=== PATIENT | female | born 1950 | race Caucasian/White ===

== ENCOUNTER → 2016-05-04 | Outpatient (CLI) | payer BC ==
[~2016-05-04] MED LIST: CHOL100010 PO; FLUO0.0566 TOP; GABA-112 PO; GABA-113 PO; HYDR-4079 PO; MGNO400 PO; MYR25 PO; SACC250C PO; SNG10 PO; SYN100 PO; TRAN10TA PO; TRL300 PO; ZYP10 PO; [UNRECOGNIZED DRUG - CODE] PO
[2016-05-04 13:03] LABS: HEMATOCRIT 45.8 % (37-47); MEAN CELL VOLUME 90.9 fL (80-100); MEAN CORPUSCULAR HGB CONC 34.1 g/dl (32-36); MEAN PLATELET VOLUME 9.1 fL (7.4-10.4); PLATELET COUNT 436 K/uL (130-400); RED BLOOD COUNT 5.04 M/uL (4.2-5.4); WHITE BLOOD COUNT 8.76 K/uL (4.8-10.8)
[2016-05-04 13:44] LABS: ALT/SGPT 16 U/L (12-78); BLOOD UREA NITROGEN 14 mg/dl (7-18); BUN/CREATININE RATIO 15.2 (10-20); CALCIUM 10.4 mg/dl (8.5-10.1); CARBON DIOXIDE 27 mmol/L (21-32); CHLORIDE 107 mmol/L (98-107); CHOLESTEROL 222 mg/dl (0-200); CREATININE 0.93 mg/dl (0.60-1.20); GLUCOSE 90 mg/dl (70-99); SODIUM 141 mmol/L (136-145); TRIGLYCERIDES 215 mg/dl (0-150); VERY LOW DENSITY LIPOPROT CALC 43 mg/dl
[2016-05-04 13:52] LABS: ALB/GLOB RATIO 0.8 (0.9-2); ALKALINE PHOSPHATASE 117 U/L (45-117); AST/SGOT 14 U/L (15-37); CHOLESTEROL/HDL RATIO 3.8; HDL CHOLESTEROL 58 mg/dl; LDL CHOLESTEROL CALCULATED 121 mg/dl; THYROID STIMULATING HORMONE 0.745 uIu/ml (0.300-4.500)
== END | disposition home or self-care (01) ==
LOC: C.LAB 11:54
PROVIDERS: ATTEND Psychiatry & Neurology Psychiatry
DX: Z00.00 Encounter for general adult medical examination without abnormal findings (principal); Z79.899 Other long term (current) drug therapy; E03.9 Hypothyroidism, unspecified; Z13.220 Encounter for screening for lipoid disorders

== ENCOUNTER → 2016-10-19 | Outpatient (CLI) | payer OTHER, BC | END | disposition home or self-care (01) | LOC: C.LAB1850 14:32 | PROVIDERS: ATTEND Internal Medicine Rheumatology | DX: M81.0 Age-related osteoporosis without current pathological fracture (principal); N25.81 Secondary hyperparathyroidism of renal origin ==

== ENCOUNTER 2017-01-07 21:22 | Emergency (ER) | payer OTHER, BC ==
[~2017-01-07] VITALS: Ht 167.6 cm; Wt 63.2 kg
[2017-01-07 21:31] VITALS: TEMP 36.8; Ht 167.6 cm; Wt 63.2 kg
[2017-01-07] MEDS ORDERED: CYAN500T PO (22:28)
[2017-01-07] MEDS ORDERED: CARB200T PO ×3 (22:29→22:39)
[2017-01-07] MEDS ORDERED: LAMO100T16 PO (22:39)
[2017-01-07] MEDS ORDERED: LEVO100T PO (22:39)
[2017-01-07] MEDS ORDERED: MONT1TAB3 PO (22:39)
[2017-01-07] MEDS ORDERED: GABA-113 PO (22:39)
[2017-01-07] MEDS ORDERED: MELO15TA4 PO (22:39)
[2017-01-07] MEDS ORDERED: PALI6TAB PO (22:39)
[2017-01-07] MEDS ORDERED: HYDR-4079 PO (22:39)
[2017-01-07] MEDS ORDERED: MIRA1TAB3 PO (22:39)
[2017-01-07 22:59] LABS: BASO % 0.2 %; BASO ABS # 0.03 K/uL (0-0.2); COMPLETE YES; EOS % 1.7 %; IG% 0.2 %; LYMPH ABS # 2.22 K/uL (1.2-3.4); MEAN CORPUSCULAR HEMOGLOBIN 31.1 pg (25-34); MEAN CORPUSCULAR HGB CONC 34.9 g/dl (32-36); MEAN PLATELET VOLUME 9.7 fL (7.4-10.4); MONO % 6.8 %; NEUT % 73.1 %; PLATELET COUNT 374 K/uL (130-400); RED BLOOD COUNT 5.28 M/uL (4.2-5.4); WHITE BLOOD COUNT 12.34 K/uL (4.8-10.8)
[2017-01-07 23:17] LABS: BUN/CREATININE RATIO 17.7 (10-20); CALCIUM 11.1 mg/dl (8.5-10.1); CREATININE 1.02 mg/dl (0.60-1.20); POTASSIUM 3.1 mmol/L (3.5-5.1)
[2017-01-07 23:20] LABS: ACETAMINOPHEN < 2 ug/ml (10-30)
[2017-01-08] MEDS ORDERED: POTASSIUM CHLORIDE 10 MEQ TABCR PO STA (00:09)
--- NOTE | 2017-01-08 01:04 | EMERGENCY ROOM VISIT NOTE ---
History Report prepared by Marie: Merary Varner Under the Supervision of: Dr. Vishnu Slater M.D. First contact with patient: 21:40 Chief Complaint: MENTAL HEALTH EVALUATION Stated Complaint: MENTAL HEALTH History of Present Illness The patient is a 66 year old female who presents to the Emergency Room for a mental health evaluation. The patient states that she is here for orthopedics and will only see Dr. Haney. She states "your voice is too loud and irritating. Shut up." The patient notes that she is "listening to a song." She states that "the three of them should play the piano." She reports that she is speaking with Sir Quinten Matthews, Deion Mann, and Wilber Shah. HPI limited secondary to altered mental status. Source of History: patient History Limited By: AMS Onset: this evening Position: other (global) Quality: other (global) Timing: other (episode) Review of Systems See HPI for pertinent positives & negatives. A total of 10 systems reviewed and were otherwise negative. Past Medical & Surgical Medical Problems: (1) Asthma, Unspecified (2) Bipolar disorder (3) Bleeding hemorrhoid (4) Chronic pain (5) Chronic Pain Syndrome (6) Delirium (7) Depressive Disorder Nec (8) Frequent falls (9) Hypothyroid (10) Hypothyroidism (11) Hypothyroidism Nos (12) Lumbago (13) Lumbosacral Neuritis Nos (14) Noncompliance (15) Opioid Dependence-Unspec (16) Osteoporosis Nos (17) Past Psych Meds (18) Stomach Ulcer Nos Surgical Problems: (1) Knee Joint Replacement Status Old medical records were reviewed. Nurse's notes were reviewed and I agree with. Family History Patient reports no known family medical history. Social History Smoking Status: Unknown if Ever Smoked Marital Status: single Occupation Status: disabled Current/Historical Medications Scheduled Carbamazepine (Tegretol), 200 MG PO QAM Carbamazepine (Tegretol), 400 MG PO HS Gabapentin (Neurontin), 300 MG PO QID Lamotrigine (Lamictal), 100 MG PO HS Levothyroxine Sodium (Synthroid), 100 MCG PO QAM Meloxicam (Meloxicam), 15 MG PO DAILY Mirabegron (Myrbetriq Er), 50 MG PO DAILY Montelukast Sodium (Singulair), 10 MG PO DAILY Paliperidone (Invega), 6 MG PO HS Scheduled PRN Hydrocodone/Acetaminophen 10MG/325MG ([place] 10MG/325MG), 1 TAB PO QID PRN for Pain Allergies Coded Allergies: Meperidine (Verified Allergy, Severe, 01/07/17) Codeine (Verified Allergy, Mild, 01/07/17) Nitrofurantoin (Verified Allergy, Mild, 01/07/17) Sulfa Antibiotics (Verified Allergy, Mild, `, 01/07/17) Clavulanic Acid (Verified Adverse Reaction, Intermediate, NAUSEA, 01/07/17 ) Iodine (Verified Adverse Reaction, Intermediate, BURNING ON CONTACT, 01/07) Penicillins (Verified Adverse Reaction, Intermediate, NAUSEA, 01/07/17) NSAIDs (Unverified Adverse Reaction, Unknown, NO NSAIDS PER [id number] DR HANEY ADM, 01/07/17) Physical Exam Vital Signs Date Time Temp Pulse Resp B/P (MAP) Pulse Ox O2 Delivery O2 Flow Rate FiO2 01/07/17 23:43 95 16 114/70 94 Room Air 01/07/17 21:31 36.8 106 22 133/101 92 Room Air Physical Exam General: Disheveled middle aged female who is uncooperative. Appears to be responding to external stimuli/voices. Intermittently agitated. HEENT: Normal cephalic atraumatic. Pupils are equal round and reactive to light. Extraocular movements are intact. Oropharynx is pink with moist mucous membranes. No swelling of the mouth lips or tongue. Neck: Supple with a midline trachea. No meningeal signs or stiffness, no JVD or bruits. No Stridor. Chest: Clear to auscultation bilaterally. No wheezes or rhonchi. No increased work of breathing. Heart: regular rate and rhythm. Abdomen: Soft nontender, nondistended without rebound guarding or rigidity. Extremities: No cyanosis clubbing or edema. No calf tenderness or assymetry Spine/Back. Non tender to palpation. No CVA tenderness Skin: Good turgor without rashes. Neurologic exam: Cranial nerves two through 12 are intact. Motor and sensation are intact and symmetrical throughout. Psych: Uncooperative. Delusional. Responding to voices. Medical Decision & Procedures Laboratory Results 01/07/17 22:17 Red Blood Count 5.28, Mean Corpuscular Volume 89.0, Mean Corpuscular Hemoglobin 31.1, Mean Corpuscular Hemoglobin Concent 34.9, Mean Platelet Volume 9.7, Neutrophils (%) (Auto) 73.1, Lymphocytes (%) (Auto) 18.0, Monocytes (%) (Auto) 6.8, Eosinophils (%) (Auto) 1.7, Basophils (%) (Auto) 0.2, Neutrophils # (Auto) 9.01, Lymphocytes # (Auto) 2.22, Monocytes # (Auto) 0.84, Eosinophils # (Auto) 0.21, Basophils # (Auto) 0.03 01/07/17 22:17 Test 01/07/17 22:17 White Blood Count 12.34 K/uL (4.8-10.8) Red Blood Count 5.28 M/uL (4.2-5.4) Hemoglobin 16.4 g/dL (12.0-16.0) Hematocrit 47.0 % (37-47) Mean Corpuscular Volume 89.0 fL (80-100) Mean Corpuscular Hemoglobin 31.1 pg (25-34) Mean Corpuscular Hemoglobin Concent 34.9 g/dl (32-36) Platelet Count 374 K/uL (130-400) Mean Platelet Volume 9.7 fL (7.4-10.4) Neutrophils (%) (Auto) 73.1 % Lymphocytes (%) (Auto) 18.0 % Monocytes (%) (Auto) 6.8 % Eosinophils (%) (Auto) 1.7 % Basophils (%) (Auto) 0.2 % Neutrophils # (Auto) 9.01 K/uL (1.4-6.5) Lymphocytes # (Auto) 2.22 K/uL (1.2-3.4) Monocytes # (Auto) 0.84 K/uL (0.11-0.59) Eosinophils # (Auto) 0.21 K/uL (0-0.5) Basophils # (Auto) 0.03 K/uL (0-0.2) RDW Standard Deviation 39.1 fL (36.4-46.3) RDW Coefficient of Variation 12.2 % (11.5-14.5) Immature Granulocyte % (Auto) 0.2 % Immature Granulocyte # (Auto) 0.03 K/uL (0.00-0.02) Anion Gap 8.0 mmol/L (3-11) Est Creatinine Clear Calc Drug Dose 51.4 ml/min Estimated GFR () 66.8 Estimated GFR (Non- 57.7 BUN/Creatinine Ratio 17.7 (10-20) Calcium Level 11.1 mg/dl (8.5-10.1) Total Bilirubin 0.5 mg/dl (0.2-1) Direct Bilirubin 0.1 mg/dl (0-0.2) Aspartate Amino Transf (AST/SGOT) 56 U/L (15-37) Alanine Aminotransferase (ALT/SGPT) 39 U/L (12-78) Alkaline Phosphatase 110 U/L (45-117) Total Protein 8.6 gm/dl (6.4-8.2) Albumin 3.8 gm/dl (3.4-5.0) Lipase 567 U/L (73-393) Salicylates Level < 1.7 mg/dl (2.8-20) Acetaminophen Level < 2 ug/ml (10-30) Ethyl Alcohol mg/dL < 3.0 mg/dl (0-3) Laboratory studies as stated above per my review. Medications Administered Medications (Trade) Dose Ordered Sig/Mark Route Start Time Stop Time Status Last Admin Dose Admin Potassium Chloride (Klor-Con M10) 40 meq NOW STAT PO 01/08/17 00:09 01/08/17 00:11 DC 01/08/17 01:26 20 MEQ Lorazepam (Ativan Tab) 1 mg NOW STAT SL 01/08/17 02:36 01/08/17 02:37 DC 01/08/17 02:55 1 MG ED Course 2142: Past medical records reviewed. The patient was evaluated in room A7, and a complete history and physical examination were performed. 0009: Ordered Potassium Chloride 40 meq PO. 0153: I reevaluated the patient. 3 [facility] is evaluating the patient and is petitioning a 302. Medical Decision Differential diagnoses include bipolar, deann, toxicologic process, infection, psychosis. This patient comes in as described above. She has a long documented psychiatric history she comes in and she has psychosis. She is responding to external stimuli and talking to herself. She is intermittently agitated. She is not cooperative at times. It is difficult to get any reasonable history from her. I have reviewed her old history in the computer. Blood work was obtained. She's had no acute electrode or metabolic abnormalities with exception of potassium be mildly low at 3.1. This was repleted with by mouth potassium. Her lipase is minimally elevated at 500. She has nothing to suggest pancreatitis and typically interhospital this does tend to be elevated slightly. She has nothing to suggest intentional overdose. I do think she will need to be admitted to psychiatric facility and I psychiatric case management team is currently working on placement. The patient has inability to care for herself and is responding to internal stimuli. She was given Ativan a milligram by mouth here given her symptoms. I do think she meets 302 criteria to sign off the 302. They're working on placement. The patient was signed out to Dr. Santa at shift change. Medication Reconcilliation Current Medication List: was personally reviewed by me Blood Pressure Screening Patient's blood pressure: Normal blood pressure Blood pressure disposition: Did not require urgent referral Impression Primary Impression: Psychosis Scribe Attestation The scribe's documentation has been prepared under my direction and personally reviewed by me in its entirety. I confirm that the note above accurately reflects all work, treatment, procedures, and medical decision making performed by me. Departure Information Referrals Milagro Couch (PCP) Patient Instructions My [facility]
[2017-01-08] MEDS ORDERED: LORAZEPAM 1 MG TAB SL STA (02:36)
--- NOTE | 2017-01-08 06:00 | EMERGENCY ROOM VISIT NOTE ---
ED Visit Note First contact with patient: 04:58 This case was signed out to me at change of shift awaiting bed placement. The patient is an involuntary commitment. She is cooperative at this time. 0600: The patient has been accepted at [facility] in [place]. They are arranging transport through the [facility]. She is a 302
--- NOTE | 2017-01-08 08:18 | EMERGENCY ROOM VISIT NOTE ---
ED Visit Note I assumed care at the change of shift, Dr. Santa had been the doctor just prior to me. I did fill out the transport paperwork. The patient is being transferred as a 302. She has been cooperative during the time under my care.
[2017-01-08 09:10] VITALS: BP 107/90; PULSE 120; O2SAT 94
== END 2017-01-08 09:35 | disposition short-term general hospital (02) ==
LOC: EDBD 21:22 → C.EDA 21:23
DX: F29 Unspecified psychosis not due to a substance or known physiological condition (principal); J45.909 Unspecified asthma, uncomplicated; E03.9 Hypothyroidism, unspecified; F31.9 Bipolar disorder, unspecified; Z91.81 History of falling; Z96.659 Presence of unspecified artificial knee joint; Z79.899 Other long term (current) drug therapy

== ENCOUNTER → 2017-07-19 | Outpatient (CLI) | payer OTHER, BC ==
[~2017-07-19] MED LIST changes: +ACET-1256 PO; -CHOL100010 PO; +CHOL20007 PO; +ESCI1TAB10 PO; -FLUO0.0566 TOP; -GABA-112 PO; -HYDR-4079 PO; +LAMO200T PO; +LEVO100T PO; +MELA1TAB5 PO; +MELO-83 PO; -MGNO400 PO; +MIRA1TAB3 PO; +MISC1CAP58 PO; +MONT1TAB3 PO; +MULT-506 PO; -MYR25 PO; +PALI234I IM; +RISP4TAB8 PO; -SACC250C PO; -SNG10 PO; -SYN100 PO; -TRAN10TA PO; +TRAZ100T29 PO; -TRL300 PO; -ZYP10 PO; -[UNRECOGNIZED DRUG - CODE] PO
[2017-07-19 13:12] LABS: BLOOD UREA NITROGEN 23 mg/dl (7-18); CARBON DIOXIDE 26 mmol/L (21-32); CREATININE 1.05 mg/dl (0.60-1.20); GLUCOSE 94 mg/dl (70-99); POTASSIUM 3.9 mmol/L (3.5-5.1); SODIUM 137 mmol/L (136-145)
[2017-07-19 13:13] LABS: CHOLESTEROL 188 mg/dl (0-200); LDL CHOLESTEROL CALCULATED 93 mg/dl
== END | disposition home or self-care (01) ==
LOC: C.LAB 10:04
PROVIDERS: ATTEND Psychiatry & Neurology Psychiatry
DX: Z79.899 Other long term (current) drug therapy (principal)

== ENCOUNTER → 2017-07-26 | Outpatient (CLI) | payer OTHER, BC | END | disposition home or self-care (01) | LOC: C.MAMM 13:07 | PROVIDERS: ATTEND Internal Medicine Rheumatology | DX: M81.0 Age-related osteoporosis without current pathological fracture (principal) ==